=== PATIENT | female | born 1965 | race Caucasian/White ===

== ENCOUNTER 2021-09-12 00:53 | Day surgery (SDC) | payer OTHER, SELFPAY ==
[2021-09-09 08:52] VITALS: BMI 29.0
--- NOTE | 2021-09-09 09:13 | PC.NURSE ---
Report to the Outpatient Waiting Room, entrance under the green pavilion located off [facility], at time 1130 on date 09/12/21. OR Time: 1330. - You and your visitor will be asked a series of questions to screen for COVID 19 for your protection. - A mask is required within the hospital. - Only one visitor is allowed at this time. Patient visitors will be guided where to wait when not with patient. Preoperative COVID Testing Requirements: No COVID Test needed if: (proof is required; if not received patient will have Rapid Test prior to entry) - Patient has received COVID Vaccine at least 14 days prior to procedure date or - Patient has positive COVID test result within last 90 days of surgery date. COVID Test needed if above criteria is not met If not COVID vaccinated a COVID test must be conducted within 72 hours of surgery and patient is asked to isolate self from time of testing until procedure. You will go to the [facility] for your COVID testing. The [facility] is located at the corner of [address] [facility]. You will only be called if COVID results are positive and your surgeon may reschedule your elective surgery date. Patients may have clear liquids (water, carbonated beverages, clear teas, apple juice) until 3 hours prior to surgery with a maximum of 20 ounces. - No food from midnight until time of surgery - Infants may have breast milk until 4 hours before surgery, infant formula 6 hours prior to surgery. - Children will be allowed to drink immediately following surgery. If applicable, please bring a bottle or sippy cup to assist with drinking. Juice, water, soda, and popsicles are readily available. For infants on formula, please bring formula the day of surgery. Pacifiers are allowed. Take the following medications with a SIP of water the morning of surgery: LEVOTHYROXINE, METOPROLOL, SERTRALINE Medications to discontinue per physician: N/A Date to take last dose: N/A Please no make-up, nail german, hairspray, perfume, deodorant, or body powder the day of surgery. No jewelry (including any body piercings) or valuables the day of surgery, leave them at home. Please take a shower or bath the night before, or the morning of, surgery with an antibacterial soap. Wear comfortable, loose fitting clothing. Children are encouraged to wear pajamas. - Jewelry must be removed prior to entering the operating room. Rings and piercings that are not removed may be cut off. - The hospital will not accept responsibility for valuables. - Please leave all valuables, including medications, at home the day of surgery. If you are going home after surgery, a licensed drop hammer pile driver operator must drive you home. - NO public transportation without another adult. - We recommend that an adult stay with you for 24 hours following discharge. - We also recommend that you do not drive, make important decision, drink alcoholic beverages, or take any drugs that were not prescribed by your health care provider for at least 24 hours after your discharge time. For Pediatric surgeries, we recommend two adults accompany the child home (only one inside the building at this time). Follow any additional instructions given to you from your surgeon. Telephone instructions given to JELENA MERAZ and asked if any additional questions and then verbalized understanding. Patient advised to call surgeon office or pre surgery nurse liaison [phone] if any additional questions.
[2021-09-12] VITALS (11 sets, daily range): BP systolic 96–131; BP diastolic 58–83; PULSE 57–83; RESP 14–16; TEMP 36.1–36.7; O2SAT 96–100; BMI 32.8
[2021-09-12] MEDS: LACTATED RINGERS 1,000 ML 30 ML IV CONT ×2 (12:34→14:23)
--- NOTE | 2021-09-12 13:07 | P.PNAN_ITS ---
Anes - Initial Pre Proc Eval Procedure: Operation Date: 09/12/21 13:30 Proposed Procedures p Right Foot Fuentes Lorenzo Bunionectomy with Implant - Trino Yang DPM Date/Time: 09/12/21 13:07 Surgeon: Trino Yang DPM Pre Op Diagnosis: bunion hallux rigidus right foot Patient Data Age: 56 Gender: F Height: 1.7 m Weight: 95 kg Last Vital Signs Temp 36.7 C 09/12/21 12:30 Pulse 68 09/12/21 12:30 Resp 14 09/12/21 12:30 BP 125/77 09/12/21 12:30 Pulse Ox 96 09/12/21 12:30 Allergies Allergy/AdvReac Type Severity Reaction Status Date / Time acetaminophen [From Percocet] Allergy Hives Verified 09/09/21 08:50 oxycodone [From Percocet] Allergy Hives Verified 09/09/21 08:50 Home Medications Medication Instructions Recorded Confirmed Type levothyroxine 112 mcg PO DAILY 09/09/21 09/09/21 History metoprolol succinate 12.5 mg PO DAILY 09/09/21 09/09/21 History sertraline 50 mg PO EVERY OTHER DAY 09/09/21 09/09/21 History Patient hx anesthesia problems: none Family hx anesthesia problems: none Results Review: All pre-operative results and documents have been reviewed as part of the pre-operative evaluation. [facility] Past Medical History Medical History (Updated 09/12/21 @ 13:07 by Calvin Chappell MD) Hyperglycemia Hypothyroidism, unspecified Obesity Surgical History Surgical History (Updated 09/12/21 @ 13:07 by Calvin Chappell MD) H/O cardiac radiofrequency ablation Family History Family History Mother Diabetes mellitus Family history of colonic diverticulitis Grandparent Diabetes mellitus Family history of cardiovascular disease Family history of malignant neoplasm of gastrointestinal tract Family history of lymphoma Family history of malignant neoplasm of ovary Sibling Depression Hypertension Father Hypertension Social History Social History Smoking status: Former smoker Tobacco type: cigarettes Second hand tobacco smoke exposure: No Smoking end date: 11/01/80 Additional smoking assessment comments: HIGH SCHOOL - NOT DAILY Alcohol intake: current Drinks per week: 3 Alcohol use details: wine Substance use: never Substance use type: does not use Living arrangements: with family Gender identity (if verbalized by the patient): Female Spiritual care concerns: No Agree to blood products: Yes Anes - Eval Final PreProcedure Day of Procedure 09/12/21 13:07 Patient weight: obese Heart: regular rate and rhythm Lungs: clear to auscultation Airway: Mallampati scale class II Neurological: alert and oriented Last oral intake: >/= 8 hours Emergent: no Anesthetic plan: proceed Anesthesia type and monitoring: general LMA and standard monitoring Results Review: All pre-operative results and documents have been reviewed as part of the pre-operative evaluation. Informed Consent: The patient's anesthetic plan and its attendant risks and benefits were discussed with the patient/family/POA. Questions were solicited and answers provided to the satisfaction of the patient/family/POA.
--- NOTE | 2021-09-12 13:13 | WPDHPUPDATE1 ---
History and Physical Update Update Date/Time: 09/12/21 13:13 History and Physical has been reviewed, including an updated exam of the patient. There are NO changes in the patient's condition. Risks, benefits, and alternatives have been discussed and questions answered. Patient agrees to proceed with procedure.
[2021-09-12] MEDS: ceFAZolin 2 GM/D5W 50 ML 2 GM/50 ML BAG IVPB (13:35)
[2021-09-12] MEDS: NEOMYCIN/POLYMYXIN/BACITRACIN OINTMENT 15 GM TUBE 1 APPLIC TOPICAL (14:13)
--- NOTE | 2021-09-12 14:19 | P.OPB_ITS ---
Procedure Note - Brief Procedure Note - Brief Date of procedure: 09/12/21 Pre-op diagnosis: bunion hallux rigidus right foot Post-op diagnosis: same Procedure performed: Excision of jose implant and insertion of total silactic great toe implant right Description of procedure: Under monitored sedation patient was brought into the operating room and placed on the operating table in a supine position. Following general anesthesia the foot was then scrubbed, prepped, and draped in the usual aseptic manner. An Esmark bandage was used to exsanguinate the patient?s right foot and the ankle tourniquet was inflated. Attention was then directed to the dorsal aspect of the 1 st metatarsophalangeal joint where linear incision was made medial to the extensor tendon. It was deepened down to the level of the bone using sharp and blunt dissection with care being taken to identify and retract all vital and neurovascular structures. A linear capsulotomy was made and the head of the metatarsal was exposed to the operative field. The jose implant that had been previously inserted into the proximal phalanx was removed without incident. [facility] the head of the metatarsal and the base of the proximal phalanx were resected. A size 40 implant was sized and placed in the wound. Good fit and ROM were noted All remaining bone eminences were removed with a bone saw and all rough edges were smoothed. The wound was flushed with copious amounts of sterile normal saline and the deep tissue was repaired using 3-0 vicryl, skin was repaired using 5-0 vicryl. The wound was then injected with 1cc of Decadron and was covered with a dry, sterile compressive dressing consisting of steristrips, antibiotic ointment, Adaptic, 4 x4?s Yann and Coban. Ankle tourniquet was deflated; prompt capillary refill response was noted to all digits of the left foot. Patient tolerated the procedure and anesthesia well, was transferred to the recovery room with vital signs stable and neurovascular status intact to all digit of the left foot. Following a period of post-op monitoring the patient will be discharged home with written and oral post-op instructions Implants: Size 40 Futura great toe implant Anesthesia: GLMA Surgeon: Trino Yang DPM Overlay Plastician: None Estimated blood loss (mL): 5 Drains: No Packing: No Pathology: none sent Complications: No immediate complications Condition: stable Disposition: PACU
[2021-09-12] MEDS: fentaNYL CITRATE INJ (*CRX) 100 MCG/2 ML VIAL 25 MCG IV PUSH ×8 (14:44→15:06)
[2021-09-12] MEDS: HYDROcodone/acetaminophen (*CRX) 5-325 MG TABLET 1 TAB PO (15:56)
== END 2021-09-12 16:34 | disposition home or self-care (01) ==
PROVIDERS: PCP Family Medicine; Visit Provider Podiatrist Foot & Ankle Surgery
PROC: (CPT 28299; principal; 2021-09-12 13:30)
DX: M20.21 Hallux rigidus, right foot (principal); T84.84XA Pain due to internal orthopedic prosthetic devices, implants and grafts, initial encounter; Y83.8 Other surgical procedures as the cause of abnormal reaction of the patient, or of later complication, without mention of misadventure at the time of the procedure; M21.611 Bunion of right foot; E03.9 Hypothyroidism, unspecified; R73.9 Hyperglycemia, unspecified; Z87.891 Personal history of nicotine dependence; E66.9 Obesity, unspecified; Z68.32 Body mass index [BMI] 32.0-32.9, adult
CPT/HCPCS: 28291; A9270; C1776; J0690; J1100; J2250; J2405; J2704; J3010; J7120

== ENCOUNTER 2022-09-12 16:17 | Emergency (ER) | payer OTHER, SELFPAY ==
[2022-09-12 16:34] VITALS: BP 132/76; PULSE 76; RESP 18; TEMP 36.7; O2SAT 99
--- NOTE | 2022-09-12 17:07 | ED.GENADULT ---
HPI - General Adult General Chief complaint: Urogenital-Female Stated complaint: uti complaint History of Present Illness HPI narrative: Mrs Cardenas is a pleasant 57 y/o female. PMHx Migraine, Hypothyroid. Presents to the [facility] today with acute complaints of bladder 'pressure', dysuria, as well as urinary frequency. Manifestation onset was last HS. Burning sensation intra and post void. No fever, chills. Urine has been darker in color than normal. No flank pain, gross hematuria. Denies abdominal pain, N/V. No pelvic pain, vaginal discharge. No falls or abdominal traumas. Pt had attempted to contact her PCP access line, however was unable to get a return call over the weekend. She is without additional acute c/o upon PE. Related Data Home Medications Medication Instructions Recorded Confirmed levothyroxine 125 mcg tablet 125 mcg PO DAILY 09/07/22 09/12/22 (Synthroid) Allergies Allergy/AdvReac Type Severity Reaction Status Date / Time oxycodone [From Percocet] Allergy Gastrointestinal Verified 09/12/22 16:44 Upset meperidine [From Demerol] AdvReac Intermediate Hives Verified 09/12/22 16:44 Review of Systems Review of Systems: CONSTITUTIONAL: Denies fever, chills, sweats. EYES: Denies. ENT: Denies. CARDIOVASCULAR: Denies chest pain, palpitations, edema. RESPIRATORY: Denies. GASTROINTESTINAL: Denies abdominal pain, nausea, vomiting, diarrhea. No Flank pain. GENITOURINARY: + dysuria, urgency, frequency. No hematuria, abnormal discharge SKIN: Denies rash or itching. MUSCULOSKELETAL: Denies acute back pain, joint pain, or myalgia. NEUROLOGIC: Denies numbness, or focal weakness. PSYCHIATRIC: Denies anxiety or depression. [facility] Past Medical History Medical History Hyperglycemia Hypothyroidism, unspecified Migraine Obesity Personal history of COVID-19 Surgical History Surgical History H/O cardiac radiofrequency ablation Family History Family History Mother Diabetes mellitus Family history of colonic diverticulitis Vaginal cancer Breast cancer Grandparent Diabetes mellitus Family history of cardiovascular disease Family history of malignant neoplasm of gastrointestinal tract Family history of lymphoma Family history of malignant neoplasm of ovary Sibling Depression Hypertension Father Hypertension Social History Social History Smoking status: Former smoker Tobacco type: cigarettes Second hand tobacco smoke exposure: No Smoking end date: 11/01/80 Additional smoking assessment comments: HIGH SCHOOL - NOT DAILY Alcohol intake: current Drinks per week: 3 Alcohol use details: wine Substance use: never Substance use type: does not use Gender identity (if verbalized by the patient): Female Spiritual care concerns: No Agree to blood products: Yes Exam Narrative: GENERAL: This is a well-nourished, well-developed adult, in no apparent distress. HEAD: normocephalic. EYES: Sclera clear/white. EARS: External ears normal. NOSE: External nose normal. THROAT: Mucous membranes moist. NECK: Neck supple. CARDIOVASCULAR: Regular rate and rhythm. RESPIRATORY: Clear to auscultation. GASTROINTESTINAL: Abdomen soft, non-tender, nondistended. Bowel sounds are active. No guarding. No CVA tenderness. SKIN: warm, intact with no suspicious lesions or rash. NEURO: Alert, active, and age appropriate. Course Course Level of Care: Express Care Visit Vital Signs Vital signs: Vital Signs Temperature 36.7 C 09/12/22 16:34 Pulse Rate 76 09/12/22 16:34 Respiratory Rate 18 09/12/22 16:34 Blood Pressure 132/76 09/12/22 16:34 Pulse Oximetry 99 09/12/22 16:34 Oxygen Delivery Room Air 09/12/22 16:34
== END 2022-09-12 17:09 | disposition home or self-care (01) ==
PROVIDERS: Emergency Provider Nurse Practitioner Adult Health; PCP Family Medicine
DX: N30.90 Cystitis, unspecified without hematuria (principal); Z87.891 Personal history of nicotine dependence; E03.9 Hypothyroidism, unspecified; E66.9 Obesity, unspecified; Z68.28 Body mass index [BMI] 28.0-28.9, adult; Z86.16 Personal history of COVID-19
CPT/HCPCS: 81003; 87077; 87086; 87186; 99213; G0463

== ENCOUNTER 2023-01-21 18:21 | Emergency (ER) | payer OTHER, SELFPAY ==
[2023-01-21 18:42] VITALS: BP 131/83; PULSE 65; RESP 16; TEMP 35.8; O2SAT 100
[2023-01-21 18:43] VITALS: BP 131/83; PULSE 65; RESP 16; TEMP 35.8; O2SAT 100
--- NOTE | 2023-01-21 19:03 | ED.FEMALEGU ---
HPI - Female Genitourinary General Chief complaint: Urogenital-Female Stated complaint: uti symptoms Time Seen by Provider: 01/21/23 18:50 Source: patient Mode of arrival: ambulatory Limitations: no limitations History of Present Illness HPI Narrative: Risa is a 57-year-old female patient presenting to the clinic today with complaints of urinary symptoms x4 hours. She reports that she is having burning with urination and frequency. Has had frequent urinary tract infections over the last 6 months. Last urinary tract infection grew E coli and she was treated with Macrobid. Related Data Allergies Allergy/AdvReac Type Severity Reaction Status Date / Time oxycodone [From Percocet] Allergy Gastrointestinal Verified 01/21/23 18:41 Upset meperidine [From Demerol] AdvReac Intermediate Hives Verified 01/21/23 18:41 Review of Systems Review of Systems: Pertinent positives per HPI. Patient denies any fever, chills, rash, headache, visual changes, dizziness, cough, runny nose, sore throat, shortness of breath, chest pain, palpitations, nausea, vomiting, diarrhea, constipation, abdominal pain PMFSH Past Medical History Medical History Hyperglycemia Hypothyroidism, unspecified Migraine Obesity Personal history of COVID-19 Viral gastroenteritis Surgical History Surgical History H/O cardiac radiofrequency ablation Family History Family History Mother Diabetes mellitus Family history of colonic diverticulitis Vaginal cancer Breast cancer Grandparent Diabetes mellitus Family history of cardiovascular disease Family history of malignant neoplasm of gastrointestinal tract Family history of lymphoma Family history of malignant neoplasm of ovary Sibling Depression Hypertension Father Hypertension Social History Social History Smoking status: Former smoker Tobacco type: cigarettes Second hand tobacco smoke exposure: No Smoking end date: 11/01/80 Additional smoking assessment comments: HIGH SCHOOL - NOT DAILY Alcohol intake: current Drinks per week: 3 Alcohol use details: wine Substance use: never Substance use type: does not use Living arrangements: with family Occupation/Education: occupation Gender identity (if verbalized by the patient): Female Spiritual care concerns: No Agree to blood products: Yes Comments At the time of my signature, I reviewed and agree with the nursing past medical, surgical, social, and family history. There is no relevant family history pertinent to the patient complaint. Exam Narrative: General: Well-developed, well nourished, in no apparent distress. Head: Normocephalic, atraumatic. Cardio: Regular rate and rhythm, s1 and s2 normal, no murmur appreciated. Resp: Clear to auscultation bilaterally, no rhonchi, rales, wheezing or rubs. Abdomen: Soft, pliable, bowel sounds present in all quadrants,tender to palpation over the suprapubic area, no organomegly, no CVAT tenderness. Course Course Emergency Course: Portions of this record may have been created with voice recognition software. Level of Care: Express Care Visit Vital Signs Vital signs: Vital Signs Temperature 35.8 C L 01/21/23 18:42 Pulse Rate 65 01/21/23 18:42 Respiratory Rate 16 01/21/23 18:42 Blood Pressure 131/83 01/21/23 18:42 Pulse Oximetry 100 01/21/23 18:42 Oxygen Delivery Room Air 01/21/23 18:42 Temperature 35.8 C L 01/21/23 18:43 Pulse Rate 65 01/21/23 18:43 Respiratory Rate 16 01/21/23 18:43 Blood Pressure 131/83 01/21/23 18:43 Pulse Oximetry 100 01/21/23 18:43 Oxygen Delivery Room Air 01/21/23 18:43 Vital signs reviewed MDM - Female Genitourinary MDM Narrative Medical decisio
== END 2023-01-21 19:17 | disposition home or self-care (01) ==
PROVIDERS: Emergency Provider Nurse Practitioner Family; PCP Family Medicine
DX: N39.0 Urinary tract infection, site not specified (principal); E03.9 Hypothyroidism, unspecified; Z87.891 Personal history of nicotine dependence
CPT/HCPCS: 81003; 87077; 87086; 87186; 99213; G0463

== ENCOUNTER 2023-05-25 15:13 | Emergency (ER) | payer OTHER, SELFPAY ==
--- NOTE | 2023-05-25 15:18 | ED.EYEPROB ---
HPI - Eye Problem General Chief complaint: Eye Problems Stated complaint: Rt Eye Irritation Time Seen by Provider: 05/25/23 15:30 Source: patient Mode of arrival: ambulatory Limitations: no limitations History of Present Illness HPI Narrative: WILSON is a 58-year-old female patient presenting to the clinic today with complaints of right eye irritation, burning, and itching with yellow mucopurulent discharge coming from the right eye. Symptoms began last night. She does wear contacts. She has declined to take out her contact at this time as she is needing to drive home. Denies any fever or chills. Related Data Allergies Allergy/AdvReac Type Severity Reaction Status Date / Time oxycodone [From Percocet] Allergy Gastrointestinal Verified 04/12/23 15:36 Upset meperidine [From Demerol] AdvReac Intermediate Hives Verified 04/12/23 15:36 Review of Systems Review of Systems: Pertinent positives per HPI. Patient denies any fever, chills, rash, headache, dizziness, cough, runny nose, sore throat, shortness of breath, chest pain, palpitations, nausea, vomiting, diarrhea, constipation, abdominal pain, or any urinary issues. [facility] Past Medical History Medical History Hyperglycemia Hypothyroidism, unspecified Migraine Obesity Personal history of COVID-19 Viral gastroenteritis Surgical History Surgical History H/O cardiac radiofrequency ablation Family History Family History Mother Diabetes mellitus Family history of colonic diverticulitis Vaginal cancer Breast cancer Grandparent Diabetes mellitus Family history of cardiovascular disease Family history of malignant neoplasm of gastrointestinal tract Family history of lymphoma Family history of malignant neoplasm of ovary Sibling Depression Hypertension Father Hypertension Social History Social History Smoking status: Former smoker Tobacco type: cigarettes Second hand tobacco smoke exposure: No Smoking end date: 11/01/80 Additional smoking assessment comments: HIGH SCHOOL - NOT DAILY Alcohol intake: current Drinks per week: 3 Alcohol use details: wine Substance use: never Substance use type: does not use Living arrangements: with family Occupation/Education: occupation Gender identity (if verbalized by the patient): Female Spiritual care concerns: No Agree to blood products: Yes Comments At the time of my signature, I reviewed and agree with the nursing past medical, surgical, social, and family history. There is no relevant family history pertinent to the patient complaint. Exam Narrative: General: Well-developed, well nourished, in no apparent distress Head: Normocephalic, atraumatic Eyes: Pupils equally round and reactive to light bilaterally, EOM intact, left sclera and conjunctive clear, right sclera and conjunctiva injected with yellow mucopurulent discharge, mildly swelling of the right eye lids, left eye lids normal Ears: TMs intact and clear, ear canals clear, no drainage, grossly hearing normal. Nose: Nares patent, no discharge, no inflammation, no sinus tenderness. Mouth: Oropharynx without lesions or masses, good dentition, MMM. Neck: Supple, trachea midline, no enlargement of anterior or posterior cervical nodes, no thyroid masses or goiter palpable. Cardio: Regular rate and rhythm, s1 and s2 normal, no murmur appreciated. Resp: Clear to auscultation bilaterally anteriorly and posteriorly, no rhonchi, rales, wheezing or rubs Course Course Emergency Course: Portions of this record may have been created with voice recognition software. Level of Care: Express Care Visit Vital Signs Vital signs: Vital signs reviewed MDM - Eye Problem MDM Narrative Medical d
[2023-05-25 15:23] VITALS: BP 110/61; PULSE 63; RESP 18; TEMP 36.6; O2SAT 100
== END 2023-05-25 15:43 | disposition home or self-care (01) ==
PROVIDERS: Emergency Provider Nurse Practitioner Family; PCP Nurse Practitioner Family
DX: H10.9 Unspecified conjunctivitis (principal); Z87.891 Personal history of nicotine dependence; E03.9 Hypothyroidism, unspecified; E66.9 Obesity, unspecified; Z68.26 Body mass index [BMI] 26.0-26.9, adult; Z86.16 Personal history of COVID-19
CPT/HCPCS: 99213; G0463

== ENCOUNTER 2023-12-23 16:23 | Outpatient (CLI) | payer OTHER, SELFPAY ==
--- NOTE | ~2023-12-23 | MR_ITS ---
MRI of the brain Clinical History: Pain Technique: Axial and sagittal T1-weighted images were acquired. These were followed by axial T2-weigh merritt, diffusion weighted, gradient, and FLAIR images. Findings: There is no acute infarct, intracranial hemorrhage or mass lesion. There is probable focal microvascular ischemic change in the left frontal periventricular white matter. No other signal abnor mality seen in the brain parenchyma. Ventricles and subarachnoid spaces are nondilated. Orbits are unremarkable. Paranasal sinuses and mas toid air cells are essentially clear. Sagittal midline structures are intact. IMPRESSION: No acute infarct, intracranial hemorrhage, or mass lesion. Probable single small focus of chronic microvascular ischemic change in the left frontal periventricu lar white matter. Reviewed, dictated and finalized at location . E PERSON IMPRESSION: No acute infarct, intracranial hemorrhage, or mass lesion. Probable single small focus of chronic microvascular ischemic change in the lef t frontal periventricular white matter.
== END 2023-12-23 16:24 | disposition home or self-care (01) ==
PROVIDERS: PCP Nurse Practitioner Family; Visit Provider Nurse Practitioner Family
DX: R20.0 Anesthesia of skin (principal); R20.2 Paresthesia of skin; M54.12 Radiculopathy, cervical region; R06.02 Shortness of breath
CPT/HCPCS: 70551

== ENCOUNTER 2024-11-25 10:40 | Emergency (ER) | payer OTHER, SELFPAY ==
--- NOTE | ~2024-11-25 | XR_ITS ---
EXAMINATION: XR foot LT min 3V DATE: 11/25/2024 11:35 INDICATION: Lateral left foot tenderness post fall TECHNIQUE: Dorsoplantar, two oblique and lateral views of the left foot were obtained. COMPARISON: None. FINDINGS: Minimal distraction of an intra-articular fracture at the lateral base of the left fifth metatarsal. Alignment remains near-anatomic. Destructive change at the base of the first proximal phalanx and at the head of the first metatarsal. There is intervening amorphous increased density right at the right widened joint spaces suggesting the implant of the first metatarsophalangeal arthroplasty. Correlate with surgical history. 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 Small plantar calcaneal spur. IMPRESSION: 1. Mildly distracted intra-articular fracture at the lateral base of the left fifth metatarsal. 2. Likely first metatarsophalangeal arthroplasty. Correlate with and surgical history. Reviewed, dictated and finalized at location A. [facility] EDUCATOR IMPRESSION: 1. Mildly distracted intra-articular fracture at the lateral base of the left f ifth metatarsal. 2. Likely first metatarsophalangeal arthroplasty. Correlate with and surgical h istory.
--- OUTSIDE RECORDS SUMMARY | 2024-11-25 10:43 | XMS_ITS | Encounter Summary ---
Author Organization [facility] Address [facility] [place] [address] [place] [address] Care Team Providers Care Slitter And Cutter Operator Name Role Phone Alvaro Zheng MD Unavailable [phone] Sophie Nolasco MD Unavailable Gregoria Cooper HR GENERALIST Primary Care Provider [phone] Encounter Details Date Type Department Care Team (Late st Contact Info) Description 11/13/2024 Therapy Plan [facility] One Day Services [address] [place], [place] [phone] Tanika Mora MD [address] [place] [address] Social History Tobacco Use Types Packs/Day Years Used Date Smoking Tobacco: Former Cigarettes 0.3 2 Passive Smoke Exposure: Past Smokeless Tobacco: Never Comments:High school Alcohol Use Standard Drinks/Week Comments Yes 3.3 (1 standard drink = 0.6 oz p ure alcohol) social PHQ-2 Answer Date Recorded Patient Health Questionnaire-2 Score 0 03/01/2024 Comments No Sex and Gender Information Value Date Recorded Sex Assigned at Not on file Legal Sex Female 4:27 PM CDT Gender Identity Not on file Sexual Orientation Not on file 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 Answer Date of Assessment Author Status No 10/12/2018 9:41 AM SUPERVISOR CONTINUOUS WELD PIPE MILL Activ e * Do you have serious difficulty walking or climbing stairs? Answer Date of Assessment Author Status No 10/12/2018 9:41 AM Kaylee Villaseñor RN Active * Do you have difficulty dressing or bathing? Answer Date of Assessment Author Status No 10/12/2018 9:41 AM Kaylee Villaseñor RN Active * Because of a physical, mental, or emotional condition, do you have difficulty doing errands alone such as visiting a doctor's office or shopping? Answer Date of Assessment Author Status No 10/12/2018 9:41 AM Kaylee Villaseñor RN Active documented as of this encounter Mental Status * Because of a physical, mental, or emotional condition, do you have serious difficulty concentrating, remembering, or making decisions? Answer Entry Date Author Status No 10/12/2018 9:41 AM Kaylee Villaseñor RN Active documented in this encounter Plan of Treatment Upcoming Encounters Date Type Department Care Team (Late st Contact Info) Description 11/26/2024 2:30 PM SUPERVISOR CONTINUOUS WELD PIPE MILL Appointment [facility] Emergency Department Outpatient [address] [place] [address] Tanika Mora MD [address] [place] [address] 12/18/2024 8:40 AM SUPERVISOR CONTINUOUS WELD PIPE MILL Office Visit [facility] Multispecialty Care - [facility] 3 [facility], [address] [place] [phone] Wili Do MD 3 [place] [address] documented as of this encounter Visit Diagnoses Diagnosis Dog bite, initial encounter- Primary documented in this encounter Additional Health Concerns Infection Onset Date Last Indicated Resolved Time C. 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 [facility] [address] [place] [address] [place] Ship Construction Teacher CARDIOVASCULAR DISEASE 08/25/18 Sophie Nolasco MD [facility]. [address] [place], [place] [address] EP Ship Construction Teacher CLINICAL CARDIAC ELECTROPHYSIOLOGY 09/13/18 documented as of this encounter
--- OUTSIDE RECORDS SUMMARY | 2024-11-25 10:43 | XMS_ITS | Clinical Summary ---
Author Organization [facility] Address [address] [place] [address]. [place] [address] [place] [address] Care Team Providers Care Blocker Polishing Name Role Phone Alvaro Zheng MD Unavailable [phone] Sophie Nolasco MD Unavailable Gregoria Cooper BARGE LOADER Primary Care Provider Allergies Active Allergy Reactions Criticality Noted Date Comments Oxycodone Hives 09/09/2021 Medications sertraline 50 MG tablet Take 0.5 tablets (25 mg total) by mouth every other day. Pt is tapering dose. 8 Active METOPROLOL SUCCINATE ER 25 MG 24 hr tablet TAKE 1 TABLET BY MOUTH EVERY DAY 15 tablet 0 Active levothyroxine (SYNTHROID) 112 MCG tablet Take 1 tablet (112 mcg total) by mouth daily. 3 Active amoxicillin-cla vulanate (AUGMENTIN) 875-125 MG tablet Take 1 tablet (875 mg total) by mouth 2 (two) times daily for 10 days. 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 Abnormal EKG 08/19/2018 Hyperventilation 02/19/2014 Overview (09/06/2018): Date Onset: 02/19/2014 Depression 12/22/2011 Hypothyroidism 12/22/2011 Encounters Date Type Department Care Team Description 11/19/2024 11:58 AM FAST FOOD SERVER - 11/19/2024 11:59 PM FAST FOOD SERVER Hospital Encounter [facility] Emergency Department Outpatient [address] [place] [address] Ingrid Mora MD Discharge Disposition: Home or Self Care (Routine Discharge) 11/19/2024 Travel 11/15/2024 3:23 PM FAST FOOD SERVER - 11/15/2024 3:56 PM FAST FOOD SERVER Hospital Encounter [facility] Surgery [address] [place] [address] Ingrid Mora MD Discharge Disposition: Home or Self Care (Routine Discharge) 11/15/2024 Travel 11/13/2024 Therapy Plan [facility] One Day Services [address] [place] [address] Ingrid Mora MD 11/12/2024 3:33 PM FAST FOOD SERVER - 11/12/2024 5:49 PM FAST FOOD SERVER Emergency [facility] Emergency Room [id number] [place] [id number] Ingrid Mora MD Animal Bite Discharge Disposition: Home or Self Care (Routine Discharge) 11/12/2024 Travel 09/18/2024 1:20 PM FAST FOOD SERVER - 09/18/2024 1:40 PM FAST FOOD SERVER Surgery [facility] [place] [address] [id number] Lucrecia Parisi MD INJECTION EPIDURAL STEROID [id number] 09/18/2024 12:06 PM FAST FOOD SERVER - 09/18/2024 1:25 PM FAST FOOD SERVER Hospital Encounter [facility] [place] [address] [id number] Lucrecia Parisi MD Discharge Disposition: Home or Self Care (Routine Discharge) 09/18/2024 Travel from Last 3 Months Immunizations Name Administration Dates Next Due H1N1 Injectable 2009 Influenza 12/05/2009 Influenza (Generic) 08/04/2020, 3,09/27/2012,2009 Influenza Adult (Generic) 08/24/2023 MODERNA COVID-19 (12+) MRNA, LNP-S, PF, 100 MCG/ 0.5 ML DOSE 01/16/2021,12/19/2020 RESPIRATORY SYNCYTIAL VIRUS (RSV) (GENERIC) 08/24/2023 Rabies (Rabavert) 11/19/2024,11/15/2024,11/12/19 Tdap (Boostrix) 11/12/2024 Family History Medical History Relation Comments Cancer Father Heart Attack Father Hypertension Father afib Father Breast Cancer Maternal Aunt Cancer Mother Diabetes Mother Heart Attack Paternal Grandfather Breast Cancer Sister Depression Sister Hypertension Sister Relation Status Comments Father Maternal Aunt Maternal Grandfather Maternal Grandmother Mother Alive Paternal Grandfather Paternal Grandmother Sister Alive Social History Tobacco Use Types Packs/Day Years Used Date Smoking Tobacco: Former Cigarettes 0.3 2 Passive Smoke Exposure: Past Smokeless Tobacco: Never Tobacco Cessation:Counseling Given: Not Answered Comments:High school Alcohol Use Standard Drinks/Week Comments [...] Date 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 Not on fi le Not on file Last Filed Vital Signs Vital Sign Reading Time Taken Comments Blood Pressure 117/52 11/12/2024 5:47 PM FAST FOOD SERVER Pulse 64 11/12/2024 5:47 PM FAST FOOD SERVER Temperature 36.7 ??C (98 ??F) 11/15/2024 3:43 PM FAST FOOD SERVER Respiratory Rate 18 11/12/2024 5:47 PM FAST FOOD SERVER Oxygen Saturation 98% 11/12/2024 5:47 PM FAST FOOD SERVER Inhaled Oxygen Concentration - - Weight 89.4 kg (197 lb 1.5 oz) 11/12/2024 3:35 P M FAST FOOD SERVER Height 170.2 cm (5' 7 ) 11/12/2024 3:35 PM FAST FOOD SERVER Body Mass Index 30.87 11/12/2024 3:35 PM FAST FOOD SERVER Plan of Treatment Upcoming Encounters Date Type Department Care Team (Late st Contact Info) Description 11/26/2024 2:30 PM FAST FOOD SERVER Appointment [facility] Emergency Department Outpatient [address] [place] [address] Ingrid Mora MD [address] [place] [phone] 12/18/2024 8:40 AM FAST FOOD SERVER Office Visit [facility] Medical Group Multispecialty Care - [address], [address] [place] [phone] Wili Do MD [address] [place] [address] Health Maintenance Due Date Last Done Comments Cervical Cancer Screening Pap Smear (Age 30 to 64) Every 3 Years 1963 Colorectal Cancer Screening Colonoscopy (10 Years) 1963 Annual Physical 1966 Hepatitis C 1981 Cervical Cancer Screening Pap with HPV Testing (Age 30 to 64) Every 5 Years 1993 Cervical Cancer Screening with HPV 1993 Zoster Vaccines (1 of 2) 2013 COVID-19 Vaccine ( season) 2024 01/16/2021, 12/19/2020 Influenza Adult (#1) 2024 08/24/2023, 08/04/2020, 08/10/2013, Additional history exists PHQ-2 (Physician [place]) 03/01/2025 03/01/2024 Mammogram Screening 12/16/2025 12/16/2023, 09/08/2022, 08/19/2021, Additional history exists DTaP, Tdap and Td Vaccines (2 - Td or Tdap) 11/12/2034 11/12/2024 RSV Immunization or 60+ Years Completed 08/24/2023 RSV Immunizations Under 20 Months Aged Out 08/24/2023 No longer eligible based on patient's age to complete this topic Meningococcal B Vaccine Aged Out No l onger eligible based on patient's age to complete this topic Meningococcal Vaccine Aged Out No kavita jesse eligible based on patient's age to complete this topic Pneumococcal Vaccine: Pediatrics (0 to 5 Years) and At-Risk Patients (6 to 64 Years) Aged Out No longer eligible based on patient's age to complete this topic Procedures Procedure Name Priority Date/Time Associated Diagnosis Comments XR HAND RT 3V STAT 11/12/2024 4:30 PM FAST FOOD SERVER NJX INTERLAMINAR CRV/THRC 09/18/2024 1:11 PM FAST FOOD SERVER Cervical radiculopathy XR PAIN CLINIC C-ARM Today 09/18/2024 12:37 PM FAST FOOD SERVER MG SCREENING W JACKIE LEONA DIGI Routine 12/16/2023 9:35 AM FAST FOOD SERVER Encounter for screening mammogram for malignant neoplasm of breast from Last 3 Months or Most Recently Relevant to Health Maintenance Results * XR HAND RT 3V (11/12/2024 4:30 PM FAST FOOD SERVER) Anatomical Region Laterality Modality Hand Radiographic Melony ging 11/12/2024 4:39 PM FAST FOOD SERVER Impressions 11/12/2024 4:42 PM FAST FOOD SERVER IMPRESSION: Nonspecific minimal areas of cortical irregularity distal radius and ulna. Findings may be sequelae of degenerative change and/or trauma of indeterminate chronicity. Further management of these findings now should be determined after clinical correlation. If symptoms persist, consider repeat radiographs in 7-10 days. Ordered By: INGRID MORA Interpreted By: Emily Nails MD, 11/12/2024 4:39 PM Narrative 11/12/2024 4:42 PM FAST FOOD SERVER [facility] [address] [facility] [place] [address] EXAMINATION: ??RIGHT HAND RADIOGRAPH(S) Exam Date: 11/12/2024 3:33 PM INDICATION: Injury after a dog bite TECHNIQUE: ??3 views. COMPARISON: None. FINDINGS: ?? Presence of osteopenia limits evaluation of fine bony detail. No dislocation. No subcutaneous emphysema. Very subtle cortical irregularity of the distal radius laterally and posteriorly noted with questionable overlying/adjacent trace swelling. Additional slight bony deformity of the ulnar styloid as well. It is unclear whether this represents sequela degenerative change and/or trauma of indeterminate chronicity. Limited evaluation of the partially imaged forearm on this nondedicated study. Procedure Note Emily Nails MD - 11/12/2024 [facility] [address] [facility] [place] [address] EXAMINATION: RIGHT HAND RADIOGRAPH(S) Exam Date: 11/12/2024 3:33 PM INDICATION: Injury after a dog bite TECHNIQUE: 3 views. COMPARISON: None. FINDINGS: Presence of osteopenia limits evaluation of fine bony detail. Nodislocation. No subcutaneous emphysema. Very subtle cortical irregularity of the distal radius laterally andposteriorly noted with questionable overlying/adjacent trace swelling.Additional slight bony deformity of the ulnar styloid as well. It isunclear whether this represents sequela degenerative change and/or traumaof indeterminate chronicity. Limited evaluation of the partially imaged forearm on this nondedicatedstudy. IMPRESSION: Nonspecific minimal areas of cortical irregularity distal radius andulna. Findings may be sequelae of degenerative change and/or trauma ofindeterminate chronicity. Further management of these findings now should be determined afterclinical correlation. If symptoms persist, consider repeat radiographs in 7-10 days. Ordered By: INGRID MROA Interpreted By: Emily Nails MD, 11/12/2024 4:39 PM Ingrid Mora MD GENERAL IMAGING Final Result * XR PAIN CLINIC C-ARM (09/18/2024 12:37 PM FAST FOOD SERVER) Narrative Radiology, Technologist - 09/18/2024 12:37 PM FAST FOOD SERVER This report does not contain a radiologist's interpretation. Please review associated procedure and/or operative report. Lucrecia Parisi MD GENERAL IMAGING Final Result * MG SCREENING W JACKIE LEONA DIGI (12/16/2023 9:35 AM FAST FOOD SERVER) Anatomical Region Laterality Modality Breast Bilateral Mammography 12/17/2023 12:2 2 PM FAST FOOD SERVER Narrative 12/17/2023 12:23 PM FAST FOOD SERVER Examination: Screening bilateral mammogram Exam Date/Time: 12/16/2023 9:23 AM Clinical history: No current complaints Comparison: 09/08/2022 Technique: Digital screening mammography of both breasts was performed. ? Breast tomosynthesis acquisitions were obtained and reviewed. ??This study was read with the assistance of a computer-aided detection system. Tissue density: There are scattered areas of fibroglandular density. Findings: No suspicious masses, malignant appearing calcifications, skin thickening or other abnormalities are present. ??No significant change from the prior exam. IMPRESSION: No suspicious mammographic findings. Recommendation: 1. Routine Screening, Bilateral Assessment: ACR BI-RADS 2 - BENIGN FINDING(S) Ordered By: KENDY CORTES Interpreted By: León Craig, 12/17/2023 12:22 PM us Kendy Cortes CNM MAMMO Final Result from Last 3 Months or Most Recently Relevant to Health Maintenance Additional Health Concerns Infection Onset Date Last Indicated C. difficile 11/20/2018 11/20/2018 MRSA 11/20/2018 11/20/2018 Insurance AET[employer] Advance Directives * Full Code (Latest Code Status on File) Date Activated Date Inactivated Comments 10/11/2018 10:46 AM 10/12/2018 12:20 PM Care Teams Blocker Polishing Relationship Specialty Start Date End Date Gregoria Cooper FNP [address] [place] [address] PCP - General Nurse Practitioner Family 11/12/24 Alvaro Zheng MD [facility]. [address] [place] [address] [place] Territory Sales Executive CARDIOVASCULAR DISEASE 08/25/18 Sophie Nolasco MD [facility]. [address] [place] [address] EP Territory Sales Executive CLINICAL CARDIAC ELECTROPHYSIOLOGY 09/13/18
--- OUTSIDE RECORDS SUMMARY | 2024-11-25 10:43 | XMS_ITS | Encounter Summary ---
Author Organization [facility] - [facility] Address [facility] [place] [address] [place] [address] Care Team Providers Care Print Production Associate Name Role Phone Alvaro Zheng MD Unavailable [phone] Sophie Nolasco MD Unavailable Cameron Richardson MD Primary Care Provider [phone] Gregoria Cooper Primary Care Provider [phone] Encounter Details Date Type Department Care Team (Latest Contact Info) Description 01/27/2024 MyChart Message Enc [facility] Medical Group Multispecialty Care - [address], [address] [place] [phone] Wili Do MD [address] [place], [place] [phone] Past Vitamin B12 and Vitamin D tests Social History Tobacco Use Types Packs/Day Years Used Date Smoking Tobacco: Former Cigarettes 0.3 2 Smokeless Tobacco: Never Comments:High school Alcohol Use Standard Drinks/Week Comments Yes 3.3 (1 standard drink = 0.6 oz p ure alcohol) social Comments No Sex and Gender Information Value Date Recorded Sex Assigned at Not on file Legal Sex Female 4:27 PM CDT Gender Identity Not on file Sexual Orientation Not on file 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 Answer Date of Assessment Author Status No 10/12/2018 9:41 AM CHIPPING MACHINE OPERATOR Activ e * Do you have serious [...] Villaseñor RN Active documented in this encounter Progress Notes * Dee العلي RN - 01/27/2024 11:55 AM CDT Please review documented in this encounter Plan of Treatment Upcoming Encounters Date Type Department Care Team (Late st Contact Info) Description 11/26/2024 2:30 PM CHIPPING MACHINE OPERATOR Appointment [facility] Emergency Department Outpatient [address] [place] [phone] Tanika Mora MD [address] [place] [phone] 12/18/2024 8:40 AM CHIPPING MACHINE OPERATOR Office Visit [facility] Medical Group Multispecialty Care - [address], [address] [place] [address] Wili Do MD [address] [place] [address] documented as of this encounter Visit Diagnoses Not on filedocumented in this encounter Additional Health Concerns Infection Onset Date Last Indicated Resolved Time C. difficile 11/20/2018 11/20/2018 MRSA 11/20/2018 11/20/2018 documented as of this encounter Care Teams Print Production Associate Relationship Specialty Start Date End Date Cameron Richardson MD [address] [place] [address] PCP - General FAMILY PRACTICE 09/02/22 11/11/24 Gregoria Cooper, CRYSTAL [address] [place] [address] PCP - General Nurse Practitioner Family 11/12/24 Alvaro Zheng MD [facility]. [address] [place] [address] [place] Vineyardist CARDIOVASCULAR DISEASE 08/25/18 Sophie Nolasco MD [facility]. [address] [place] [address] EP Vineyardist CLINICAL CARDIAC ELECTROPHYSIOLOGY 09/13/18 documented as of this encounter
[2024-11-25 11:17] VITALS: BP 132/62; PULSE 66; RESP 18; TEMP 36.4; O2SAT 100
--- NOTE | 2024-11-25 11:59 | ED_ITS ---
HPI - Extremity Injury (Lower) General Chief Complaint: Extremity Injury, Lower Stated Complaint: fall Time Seen by Provider: 11/25/24 11:59 Source: patient Mode of arrival: ambulatory Limitations: no limitations History of Present Illness HPI Narrative: 59-year-old female presents with complaint of pain, swelling and bruising to left foot. Yesterday patient was walking on sidewalks in [facility] for a concert and slipped and fell and ice. Injury happened prior to concert so she was walking on painful foot for several hours. Patient concerned for fracture. Distal neurovascularly intact. All systems reviewed and negative except as noted above. Related Data Allergies Allergy/AdvReac Type Severity Reaction Status Date / Time meperidine (From Demerol) Allergy Mild Hives Verified 11/25/24 11:43 oxycodone (From Percocet) AdvReac Intermediate Gastrointestinal Verified 11/25/24 11:43 Upset Review of Systems Review of Systems: CONSTITUTIONAL: Denies fever, chills, or sweats. EYES: Denies visual changes, redness, or discharge. ENT: Denies rhinorrhea, congestion, sore throat, or otalgia. CARDIOVASCULAR: Denies chest pain, palpitations, or edema. RESPIRATORY: Denies cough or dyspnea. GASTROINTESTINAL: Denies abdominal pain, nausea, vomiting, or diarrhea. GENITOURINARY: Denies dysuria or hematuria. SKIN: Denies rash or itching. MUSCULOSKELETAL: Denies back pain, joint pain, or myalgia. Reports pain, bruising and swelling to left foot. NEUROLOGIC: Denies headache, numbness, or weakness. PSYCHIATRIC: Denies anxiety or depression. All other systems reviewed are negative, except as documented in HPI. [facility] Past Medical History Medical History (Updated 11/25/24 @ 12:09 by Tiffanie Spivey NP) Migraine Personal history of COVID-19 Family history of diabetes mellitus (DM) Obesity Family history of diabetes during Hyperglycemia Hypothyroidism, unspecified Surgical History Surgical History H/O cardiac radiofrequency ablation Family History Family History Mother Diabetes mellitus Family history of colonic diverticulitis Vaginal cancer Breast cancer Grandparent Diabetes mellitus Family history of cardiovascular disease Family history of malignant neoplasm of gastrointestinal tract Family history of lymphoma Family history of malignant neoplasm of ovary Sibling Depression Hypertension Father Hypertension Social History Social History Social History: very confident with medical forms Smoking status: Former smoker Tobacco type: cigarettes Second hand tobacco smoke exposure: No Smoking end date: 11/01/80 Additional smoking assessment comments: HIGH SCHOOL - NOT DAILY Alcohol intake: current Drinks per week: 3 Alcohol use details: wine Substance use: never Substance use type: does not use Do You Feel Safe in your Home?: Yes Lack of Transportation: No Lack of Food: Never True Current Housing: I Have Housing Concerned About Future Housing: No Difficulty Paying Gas/Electric Bills: No Difficulty Paying for Meds: No Currently Unemployed: No Education: Master's Degree or Higher Difficulty w/ Childcare or Family Care: No Living arrangements: with family Occupation/Education: occupation Gender identity (if verbalized by the patient): Female Spiritual care concerns: No Agree to blood products: Yes Comments Reviewed Exam Narrative: GENERAL: This is a well-nourished, well-developed patient, in no apparent distress. HEAD: normocephalic, atraumatic. EYES: PERRL. Sclera clear/white. Vision is grossly intact. EARS: External ears normal NOSE: External nose normal NECK: Neck supple, non-tender without lymphadenopathy, masses or thyromegaly. CARDIOVASCULAR: Regular rate and rhythm without murmurs, gallops, or rubs. RESPIRATORY: Clear to auscultation. Breath sounds equal bilaterally. No wheezes, rales, or rhonchi. SKIN: warm, Dry, intact with no suspicious lesions or rash, good texture and turgor. NEURO: awake, alert, and oriented to person, place and time. There were no obvious focal neurologic abnormalities. EXTREMITIES: tenderness to lateral aspect of left foot, 5th metatarsal. There is swelling, bruising. No deformity noted. Pulses intact. Range of motion decreased due to pain. Course Course Level of Care: Express Care Visit Vital Signs Vital signs: Vital Signs Temperature 36.4 C 11/25/24 11:17 Pulse Rate 66 11/25/24 11:17 Respiratory Rate 18 11/25/24 11:17 Blood Pressure 132/62 11/25/24 11:17 Pulse Oximetry 100 11/25/24 11:17 Oxygen Delivery Room Air 11/25/24 11:17 Temperature 36.4 C 11/25/24 11:17 Pulse Rate 66 11/25/24 11:17 Respiratory Rate 18 11/25/24 11:17 Blood Pressure 132/62 11/25/24 11:17 Pulse Oximetry 100 11/25/24 11:17 Oxygen Delivery Room Air 11/25/24 11:17 Reviewed MDM - Extremity Injury (Lower) MDM Narrative Medical decision making narrative: discussed x-ray results with patient. Patient placed in a short-leg OCL by Debbie professor of radiology. Neurovascularly intact pre and postprocedure. Patient was offered x-rays today but prefers to rent a scooter. Referred to Orthopedic for fracture care. Patient is aware of diagnosis, understands and agrees to treatment plan. Anticipatory guidance given. Patient agrees to follow-up as directed and is aware of reasons to seek care at the emergency department. Portions of this record may have been created with voice recognition software Differential Diagnosis Differential diagnosis: Likely ankle sprain and strain, fracture of toe and other ( Foot fracture, foot sprain, foot contusion) Imaging Data My impression: Agree with radiologist Radiologist's impression: EXAMINATION: XR foot LT min 3V DATE: 11/25/2024 11:35 INDICATION: Lateral left foot tenderness post fall TECHNIQUE: Dorsoplantar, two oblique and lateral views of the left foot were obtained. COMPARISON: None. FINDINGS: Minimal distraction of an intra-articular fracture at the lateral base of the left fifth metatarsal. Alignment remains near-anatomic. Destructive change at the base of the first proximal phalanx and at the head of the first metatarsal. There is intervening amorphous increased density right at the right widened joint spaces suggesting the implant of the first metatarsophalangeal arthroplasty. Correlate with surgical history. 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 Small plantar calcaneal spur. IMPRESSION: 1. Mildly distracted intra-articular fracture at the lateral base of the left fifth metatarsal. 2. Likely first metatarsophalangeal arthroplasty. Correlate with and surgical history. Discharge Plan Discharge Clinical Impression: Nondisplaced fracture of fifth left metatarsal bone Patient Disposition: Home, Self-Care Condition: Stable Instructions: Antibiotic Form Additional Instructions: the x-ray of your left foot showed a fracture to your 5th metatarsal bone. A temporary splint was placed today. Elevate left foot when at rest. Apply ice as needed for pain. Take tramadol every 6-8 hours as needed for pain. Do not drive while taking this medication. Call Wednesday and schedule a follow-up appointment with land reclamation specialist. Patient Language: Mauritian Prescriptions: New tramadol 50 mg tablet 50 mg PO Q6H PRN (Reason: pain) Qty: 20 0RF No Action fluconazole 150 mg tablet 150 mg PO ONCE Qty: 2 0RF Rx Instructions: as a single dose; Repeat in 3 days metoprolol succinate 25 mg tablet extended release 24 hr See Rx Instructions .ROUTE .COMPLEX Qty: 45 0RF Dose Instruction: TAKE 1/2 TABLET BY MOUTH EVERY DAY Rx Instructions: TAKE 1/2 TABLET BY MOUTH EVERY DAY sertraline 50 mg tablet See Rx Instructions .ROUTE .COMPLEX Qty: 45 1RF Dose Instruction: TAKE 1/2 TABLET BY MOUTH DAILY Rx Instructions: TAKE 1/2 TABLET BY MOUTH DAILY levothyroxine 112 mcg tablet See Rx Instructions .ROUTE .COMPLEX Qty: 90 1RF Dose Instruction: TAKE 1 TABLET BY MOUTH DAILY Rx Instructions: TAKE 1 TABLET BY MOUTH DAILY Follow-up/Referrals: Byron Garza MD [Physician] - (call and schedule follow up appointment with land reclamation specialist) Gregoria Cooper APN-C [Primary Care Provider] - Stand Alone Forms: Work/School Release IP Time of Disposition: 12:10
== END 2024-11-25 12:34 | disposition home or self-care (01) ==
PROVIDERS: Emergency Provider Nurse Practitioner Family; PCP Nurse Practitioner Family
DX: S92.355A Nondisplaced fracture of fifth metatarsal bone, left foot, initial encounter for closed fracture (principal); W00.0XXA Fall on same level due to ice and snow, initial encounter; Y93.01 Activity, walking, marching and hiking; E03.9 Hypothyroidism, unspecified; E66.9 Obesity, unspecified; Z68.28 Body mass index [BMI] 28.0-28.9, adult; Z86.16 Personal history of COVID-19; Z87.891 Personal history of nicotine dependence
CPT/HCPCS: 29515; 73630; 99214; G0463

== ENCOUNTER 2025-10-10 02:23 | Day surgery (SDC) | payer OTHER, SELFPAY ==
[2025-10-05 15:15] VITALS: BMI 31.3
[2025-10-10 08:41] VITALS: BP 110/79; PULSE 71; RESP 20; TEMP 36; O2SAT 99; BMI 31.8
[2025-10-10] MEDS: LACTATED RINGERS 1,000 ML 150 ML IV CONT (08:50)
--- NOTE | 2025-10-10 09:04 | P.PNAN_ITS ---
Anes - Initial Pre Proc Eval Procedure: Operation Date: 10/10/25 09:30 Proposed Procedures p Screening Colonoscopy - Desmond Hankins MD Date/Time: 10/10/25 09:04 Surgeon: Desmond Hankins MD Pre Op Diagnosis: Encounter for screening for malignant neoplasm of Patient Data Age: 60 Gender: F Height: 1.7 m Weight: 92.3 kg Last Vital Signs Temp 36.0 C L 10/10/25 08:41 Pulse 71 10/10/25 08:41 Resp 20 10/10/25 08:41 BP 110/79 10/10/25 08:41 Pulse Ox 99 10/10/25 08:41 O2 Del Method Room Air 10/10/25 08:41 Allergies Allergy/AdvReac Type Severity Reaction Status Date / Time meperidine (From Demerol) Allergy Mild Hives Verified 10/10/25 08:40 oxycodone (From Percocet) AdvReac Intermediate Gastrointestinal Verified 10/10/25 08:40 Upset Home Medications ?Medication ?Instructions ?Recorded ?Confirmed ?Type tramadol 50 mg tablet 50 mg PO Q6H PRN pain #20 ta bs 11/25/24 10/05/25 Rx levothyroxine 112 mcg tablet See Rx Instructions .Rout e 08/23/25 10/10/25 Rx .COMPLEX #90 tabs metoprolol succinate 25 mg See Rx Instructions .Route 08/23/25 10/10/25 Rx tablet,extended release 24 hr .COMPLEX #45 tabs sertraline 50 mg tablet See Rx Instructions .Route 1 10/10/25 Rx .COMPLEX #45 tabs estradiol 0.01% (0.1 mg/gram) 1 appful vaginal DAILY # 42.5 grams 09/12/25 10/10/25 Rx vaginal cream (Estrace) Patient hx anesthesia problems: none Family hx anesthesia problems: none Results Review: All pre-operative results and documents have been reviewed as part of the pre- operative evaluation. [facility] Past Medical History Medical History Migraine Personal history of COVID-19 Family history of diabetes mellitus (DM) Obesity Family history of diabetes during Hyperglycemia Hypothyroidism, unspecified Surgical History Surgical History History of foot surgery History of dilation and curettage Hx of cholecystectomy History of appendectomy H/O cardiac radiofrequency ablation Family History Family History Mother Diabetes mellitus Family history of colonic diverticulitis Vaginal cancer Breast cancer Grandparent Diabetes mellitus Family history of cardiovascular disease Family history of malignant neoplasm of gastrointestinal tract Family history of lymphoma Family history of malignant neoplasm of ovary Sibling Depression Hypertension Father Hypertension Social History Social History Social History: very confident with medical forms Smoking status: Never smoker Tobacco type: cigarettes Second hand tobacco smoke exposure: No Smoking end date: 11/01/80 Additional smoking assessment comments: HIGH SCHOOL - NOT DAILY Alcohol intake: current Drinks per week: 2 Alcohol use details: wine Substance use: never Substance use type: does not use Lack of Transportation: No Lack of Food: Never True Current Housing: I Have Housing Concerned About Future Housing: No Difficulty Paying Gas/Electric Bills: No Difficulty Paying for Meds: No Currently Unemployed: No Education: Master's Degree or Higher Difficulty w/ Childcare or Family Care: No Living arrangements: with family Occupation/Education: occupation Additional occupation/education comments: [employer] Gender identity (if verbalized by the patient): Female Spiritual care concerns: No Agree to blood products: Yes Anes - Eval Final PreProcedure Day of Procedure 10/10/25 09:04 Patient weight: obese Heart: regular rate and rhythm Lungs: clear to auscultation Airway: Mallampati scale class II Neurological: alert and oriented Last oral intake: >/= 8 hours ASA classification: III Emergent: no Anesthetic plan: proceed Anesthesia type and monitoring: general GIVS and standard monitoring Results Review: All pre-operative results and documents have been reviewed as part of the pre- operative evaluation. Informed Consent: The patient's anesthetic plan and its attendant risks and benefits were discussed with the patient/family/POA. Questions were solicited and answers provided to the satisfaction of the patient/family/POA.
--- NOTE | 2025-10-10 09:15 | P.HP_ITS ---
History of Present Illness History of Present Illness Consent: Risks, benefits, and alternatives have been discussed and questions answered. Patient agrees to proceed with procedure. Chief complaint: Encounter for screening for malignant neoplasm of Narrative: Risa Rodriguez is a 60 year old female here for screening colonoscopy, last one more than 10 years ago Review of Systems Review of Systems: All systems reviewed & are unremarkable except as noted in HPI and below PMFSH Past Medical History Medical History (Updated 10/10/25 @ 09:16 by Desmond Hankins MD) Colon cancer screening Migraine Personal history of COVID-19 Family history of diabetes mellitus (DM) Obesity Family history of diabetes during Hyperglycemia Hypothyroidism, unspecified Surgical History Surgical History History of foot surgery History of dilation and curettage Hx of cholecystectomy History of appendectomy H/O cardiac radiofrequency ablation Family History Family History Mother Diabetes mellitus Family history of colonic diverticulitis Vaginal cancer Breast cancer Grandparent Diabetes mellitus Family history of cardiovascular disease Family history of malignant neoplasm of gastrointestinal tract Family history of lymphoma Family history of malignant neoplasm of ovary Sibling Depression Hypertension Father Hypertension Social History Social History Social History: very confident with medical forms Smoking status: Never smoker Tobacco type: cigarettes Second hand tobacco smoke exposure: No Smoking end date: 11/01/80 Additional smoking assessment comments: HIGH SCHOOL - NOT DAILY Alcohol intake: current Drinks per week: 2 Alcohol use details: wine Substance use: never Substance use type: does not use Lack of Transportation: No Lack of Food: Never True Current Housing: I Have Housing Concerned About Future Housing: No Difficulty Paying Gas/Electric Bills: No Difficulty Paying for Meds: No Currently Unemployed: No Education: Master's Degree or Higher Difficulty w/ Childcare or Family Care: No Living arrangements: with family Occupation/Education: occupation Additional occupation/education comments: formerly [employer] Gender identity (if verbalized by the patient): Female Spiritual care concerns: No Agree to blood products: Yes Meds Home Medications and Allergies Home Medications ?Medication ?Instructions ?Recorded ?Confirmed ?Type tramadol 50 mg tablet 50 mg PO Q6H PRN pain #20 ta bs 11/25/24 10/05/25 Rx levothyroxine 112 mcg tablet See Rx Instructions .Rout e 08/23/25 10/10/25 Rx .COMPLEX #90 tabs metoprolol succinate 25 mg See Rx Instructions .Route 08/23/25 10/10/25 Rx tablet,extended release 24 hr .COMPLEX #45 tabs sertraline 50 mg tablet See Rx Instructions .Route 1 10/10/25 Rx .COMPLEX #45 tabs estradiol 0.01% (0.1 mg/gram) 1 appful vaginal DAILY # 42.5 grams 09/12/25 10/10/25 Rx vaginal cream (Estrace) Allergies Allergy/AdvReac Type Severity Reaction Status Date / Time meperidine (From Demerol) Allergy Mild Hives Verified 10/10/25 08:40 oxycodone (From Percocet) AdvReac Intermediate Gastrointestinal Verified 10/10/25 08:40 Upset Vital Signs Vital Signs - 24 hr 10/10/25 08:41 Temperature 96.8 F L Pulse Rate 71 Respiratory Rate 20 Blood Pressure 110/79 Pulse Oximetry 99 Oxygen Delivery Room Air Exam Const: General: comfortable and no acute distress HENMT: Face/Nose/Sinus: Normal nares present Eyes: General: appearance normal, both eyes and all related structures Neck: Neck: no JVD Resp: Auscultation: clear to auscultation bilaterally Cardio: Rate: regular rate Rhythm: regular rhythm GI: Inspection: non-distended GI Palp: Yes Soft to palpation Skin: General skin exam: normal color Extrem: General: normal to inspection Psych: Mental Status: mental status grossly normal Assessment and Plan Assessment and plan (1) Colon cancer screening: Code(s): Z12.11 - Encounter for screening for malignant neoplasm of colon Status: Acute Assessment and Plan: colonoscopy
--- NOTE | 2025-10-10 09:32 | S_PTH ---
PATIENT: Ronald Rodriguez,[facility] LOC: [facility] Hinson#:[id number] AGE/SX: 60/F ROOM: RE10/10/[address]: Desmond Hankins MD : 1965 BED: DIS: 10/10/2025 SPEC #: [id number] RECD: 10/10/25 11:24 STATUS: BRYSON STEWART #: [id number] ALEX: 10/10/25 09:[address]: Desmond Hankins DEPT: [facility] Surgical RECD BY: [place] MLT, ([facility]) ENTERED: 10/10/25 11:24 SP TYPE: Surgical OTHR DR: Gregoria Cooper APRN Tissues: A - Colon Polypectomy Procedures: Hematoxylin and Eosin Stain Gross and Microscopic Level 4
[2025-10-10 09:34] VITALS: BP 89/56; PULSE 60; RESP 13; O2SAT 95
[2025-10-10 09:44] VITALS: BP 107/86; PULSE 58; RESP 13; O2SAT 96
[2025-10-10 09:54] VITALS: BP 105/54; PULSE 60; RESP 17; O2SAT 98
== END 2025-10-10 10:09 | disposition home or self-care (01) ==
PROVIDERS: PCP Nurse Practitioner Family; Referring Provider Nurse Practitioner Family; Visit Provider Internal Medicine Gastroenterology
PROC: 0DJD8ZZ Inspection of Lower Intestinal Tract, Via Natural or Artificial Opening Endoscopic (ICD-10-PCS; CPT 45378; principal; 2025-10-10 09:30)
DX: Z12.11 Encounter for screening for malignant neoplasm of colon (principal); K63.5 Polyp of colon; E03.9 Hypothyroidism, unspecified; R73.9 Hyperglycemia, unspecified; E66.9 Obesity, unspecified; Z68.31 Body mass index [BMI] 31.0-31.9, adult; Z79.891 Long term (current) use of opiate analgesic; Z98.890 Other specified postprocedural states; Z90.49 Acquired absence of other specified parts of digestive tract; Z86.79 Personal history of other diseases of the circulatory system; Z80.3 Family history of malignant neoplasm of breast; Z80.41 Family history of malignant neoplasm of ovary; Z80.0 Family history of malignant neoplasm of digestive organs; Z80.49 Family history of malignant neoplasm of other genital organs; Z80.7 Family history of other malignant neoplasms of lymphoid, hematopoietic and related tissues; Z82.49 Family history of ischemic heart disease and other diseases of the circulatory system
CPT/HCPCS: 45385; 88305; J2003; J2704; J7120